=== PATIENT | male | born 1990 | race Caucasian/White ===

== ENCOUNTER 2019-03-16 06:17 | Day surgery (SDC) | payer BC ==
[~2019-03-16] VITALS: Ht 180.3 cm; Wt 75.3 kg
[2019-03-16] VITALS (10 sets, daily range): BP systolic 85–111; BP diastolic 37–62; PULSE 60–86; RESP 14–22; Ht 180.3 cm; Wt 75.3 kg
[2019-03-16] MEDS ORDERED: CEFAZOLIN 2 GM/50 ML (PMX) 50 ML IVPB SCH (07:00)
[2019-03-16] MEDS ORDERED: SOD CHLORIDE 0.9% 1,000 ML IV SCH (07:00)
[2019-03-16] MEDS ORDERED: ACETAMINOPHEN 500 MG TAB PO ONE (08:00)
[2019-03-16] MEDS ORDERED: PROPOFOL 40 ML ONE (08:08)
[2019-03-16] MEDS ORDERED: MIDAZOLAM 1 MG/ML 2 ML INJ ONE (08:08)
[2019-03-16] MEDS ORDERED: CEFAZOLIN 1 GM INJ ONE (08:08)
[2019-03-16] MEDS ORDERED: ONDANSETRON 4 MG INJ ONE (08:08)
[2019-03-16] MEDS ORDERED: ROCURONIUM 50 MG INJ ONE (08:08)
[2019-03-16] MEDS ORDERED: FAMOTIDINE 20 MG INJ ONE (08:08)
[2019-03-16] MEDS ORDERED: LIDOCAINE 2% (SDV) 5 ML INJ ONE (08:08)
[2019-03-16] MEDS ORDERED: FENTAnyl 50 MCG/ML VIAL ONE (08:08)
[2019-03-16] MEDS ORDERED: KETOROLAC 30 MG INJ ONE (08:15)
--- NOTE | 2019-03-16 09:17 | PREAC ---
Date/Time of Note Date/Time of Note DATE: 03/16/19 TIME: 09:16 Anesthesia Eval and Record Evaluation Time Pre-Procedure Interview DATE: 03/16/19 TIME: 09:16 Age 28 Sex male NPO: 8 hrs Preoperative diagnosis pilonidal cyst Planned procedure pilonidal cyst excision Past Medical History Past Medical History: Includes Pulm: Smoking Hx (smokes cigaretts 2pack/wk and smokes marijuana occasionally) Surgery & Anesthesia Issues No known issue Meds Anticoagulation: No Beta Nathalie within 24 hr: No Reason Beta Nathalie not given: Pt. not on B-Nathalie No Active Prescriptions or Reported Meds Current Medications Cefazolin Sodium/ Dextrose 50 ml @ 100 mls/hr HI-OP IVPB ; Start 03/16/19 at 07:00; Stop 03/16/19 at 12:00 Sodium Chloride 1,000 ml @ 75 mls/hr [id number] IV Last administered on 03/16/19at 07:37; Admin Dose 75 MLS/HR; Start 03/16/19 at 07:00; Stop 03/16/19 at 12:00 Meds reviewed: Yes Allergies Coded Allergies: No Known Allergy (Unverified , 03/16/19) Allergies Reviewed: Yes Labs/Studies Labs Reviewed: Reviewed by anesthesiologist Result Diagram: 03/16/19 0715 03/16/1915 Laboratory Tests 03/16/19 07:15 test: N/A Pre-procedure Exam Last vitals Vital Signs Date Temp Pulse Resp B/P (MAP) Pulse Ox O2 O2 Flow FiO2 Time Delivery Rate 03/16/19 97.7 60 16 107/62 99 Room Air 07:30 (77) Airway: Adequate mouth opening, Adequate thyromental dist Mallampati: Mallampati II Teeth: Normal Lung: Normal Heart: Normal ASA Physical Status ASA physical status: 2 Emergency: None Planned Anesthetic General/MAC: ETT Pre-operative Attestations Prior to commencing anesthesia and surgery, the patient was re-evaluated, there was verification of: *The patient's identity *The results of appropriate recent lab work and preoperative vital signs *The above evaluation not changing prior to induction *Anesthetic plan, risk benefits, alternative and complications discussed with patient/family; questions answered; patient/family understands, accepts and wishes to proceed. LAZARUS ESCUDERO Mar 16, 2019 09:17
[2019-03-16] MEDS ORDERED: BUPIVACAINE 0.5%/EPI (SDV) 30 ML INJ ONE (09:26)
[2019-03-16] MEDS ORDERED: LIDOCAINE 1%/EPI 30 ML INJ ONE (09:26)
[2019-03-16] MEDS ORDERED: hydrALAzine 20 MG INJ IV PRN (09:30)
[2019-03-16] MEDS ORDERED: HYDROmorphONE 1 MG/5 ML IV SYRINGE IV PRN ×3 (09:30)
[2019-03-16] MEDS ORDERED: EPHEDrine 25 MG/5 ML SYG IV PRN (09:30)
[2019-03-16] MEDS ORDERED: FENTAnyl 50 MCG/ML VIAL IV PRN ×2 (09:30)
[2019-03-16] MEDS ORDERED: OXYCODONE/ACETAMINOPHEN (5/325) TAB PO PRN ×2 (09:30)
[2019-03-16] MEDS ORDERED: ALBUTEROL 0.083% (NEB) 2.5 MG/3 ML AMP HHN PRN (09:30)
[2019-03-16] MEDS ORDERED: MEPERIDINE 25 MG INJ IV PRN (09:30)
[2019-03-16] MEDS ORDERED: morphine 2 MG INJ IV PRN ×3 (09:30→12:30)
[2019-03-16] MEDS ORDERED: ONDANSETRON 4 MG INJ IV PRN ×2 (09:30→12:30)
[2019-03-16] MEDS ORDERED: LABETALOL HCL 20MG INJ IV PRN (09:30)
[2019-03-16] MEDS ORDERED: DIPHENHYDRAMINE 50 MG INJ IV PRN (09:30)
[2019-03-16] MEDS ORDERED: PHENYLephrine (100 MCG/ML) 10ML SYG ONE (10:12)
--- NOTE | 2019-03-16 11:38 | PAC ---
Date/Time of Note Date/Time of Note DATE: 03/16/19 TIME: 11:37 Post-Anesthesia Notes Post-Anesthesia Note Last documented vital signs Vital Signs Date Temp Pulse Resp B/P Pulse Ox O2 O2 Flow FiO2 Time (MAP) Delivery Rate 03/16/19 97.7 98.4 60 70 16 16 107/62 99 100 Room 07:30 113 (77) 102 Air face 0 /43 mask 6L Activity: WNL Respiratory function: WNL Cardiovascular function: WNL Mental status: Baseline Pain reasonably controlled: Yes Hydration appropriate: Yes Nausea/Vomiting absent: Yes LAZARUS ESCUDERO Mar 16, 2019 11:38
[2019-03-16] MEDS ORDERED: LACTATED RINGER'S 1,000 ML IV SCH (12:03)
--- NOTE | 2019-03-16 12:03 | SIPON ---
Date/Time of Note Date/Time of Note DATE: 03/16/19 TIME: 11:54 Operative Report Preoperative Diagnosis Extensive pilonidal cyst and sinuses Postoperative Diagnosis Extensive pilonidal cyst and sinuses. Operation/Procedure Performed Wide excision of the pilonidal cyst and sinuses #1 Local fasciocutaneous flap advancement 36 cm from right to left of midline to make a cleft lift to the left side of the midline. Assessment Sesar-Zendejas drain #7 under the fasciocutaneous flap. Surgeon see signature line retail sales assistant None Anesthesia: general Estimated blood loss: minimal Transfusion Required none Specimen Consists of pilonidal cyst and sinus tract and extra skin in the vicinity. Grafts/Implants none Complications none MILLA EVERETT MD Mar 16, 2019 12:02
[2019-03-16] MEDS ORDERED: HYDROCODONE/APAP (5/325) TAB PO PRN (12:30)
--- NOTE | 2019-03-16 18:12 | OPR ---
Date/Time of Note Date/Time of Note DATE: 03/16/19 TIME: 17:46 Operative Report Procedure Date: Mar 16, 2019 Preoperative Diagnosis Extensive pilonidal disease of the sacrococcygeal skin area and pilonidal cyst and sinuses. Postoperative Diagnosis The same pending pathology report Operation/Procedure Performed 1 wide excision of pilonidal cyst and sinuses and inflamed and diseased skin of the vicinity 2 local fascial cutaneous flap advancement 36 cm, from right to left of original midline to make a Bureau cleft lift closure to the left lateral original midline. Layer closure, deep layer with Vicryl 2 oh and the skin closure with #2-0 Prolene interrupted vertical mattress. Placement of Sesar-Zendejas drain #7 under the flap. Surgeon Arnoldo Everett M.D. Aviation Consultant None Anesthesia Type: general, other (Local) Estimated Blood Loss: 0 - 10 ml's (5 cc) Transfusion none Specimen Pilonidal cyst and sinus tract and inflamed tissues around them Grafts/Implants none Tubes/Drains 1 DAVID drain #7 Complications none Pt Condition Post Procedure: stable Disposition: home Indications 28-year-old [place] male has been having problem with his lower back in the sense that has had on and off swelling and drainage of purulent material and or blood for over 1 year eventually the diagnosis of pilonidal cyst disease was made patient requested operation to get relief of this problem. Alternatives of treatment risks and benefits of operation and different technique of operation was discussed with the patient in detail. Patient requested surgery authorization was obtained and patient was booked for operation today Procedure Description Procedure Patient was brought from the holding area over the stretcher to the operating room. General anesthesia was induced by the anesthesiologist orotracheal intubation was performed and the patient was transferred to the operating table and was placed in prone position. Cardiopulmonary monitoring was performed by the anesthesiologist and all the pressure spots were padded prepped with Betadine and draped in a sterile fashion was performed. Timeout was called patient was identified site of operation and procedure and consents were discussed among the team. Through the operation a mixture of quarter percent Marcaine with epi lidocaine 1% with epinephrine was used for local anesthesia. Considering that most of the pathology was on the left side of the midline therefore decision was made to proceed with a John modified technique for removal of the old sinus and cyst and diseased tissues and then for transferring the closure line to the lateral side of the midline and on the left side in order to lift the original cleft to the left side to facilitate the healing out of the midline. To achieve this goal a local fascial cutaneous flap advancement was performed about 36 cm flap based on the right side of the skin covering the area of the gluteus muscle after the flap was developed on hemostasis achieved then wound was thoroughly irrigated with normal saline solution and Betadine. Presacral fascia was injected with local solution. Then through a separate stab wound a #7 Sesar-Zendejas drain was introduced into the wound and was left under the flap. Then the tapes that the beginning of the procedure had been applied to the skin of the gluteal area on both sides was relieved helping the gluteal area as to approximate 2-4 the midline and then closure started closing the deep fascia with #2-0 Vicryl several interrupted sutures were taken. The skin was closed with #2-0 Prolene vertical interrupted mattress sutures were applied. Before the dressing be applied on the closed wound the sponge and needle and instrument count were reported to be correct x2 by the circulating nurse. Xeroform dressing was applied over the wound on top of it Telfa dressing was applied and then on top of it dry sterile sponges were applied again it was taped to the skin of the posterior side of the gluteal area. Sesar-Zendejas drain tubing was anchored to the skin with 2-0 nylon the tubing was connected to the block. At this time patient was transferred to the stretcher while he still was intubated and eventually patient was extubated in a stable condition on the stretcher and was transferred to recovery room. Estimated blood loss 5 cc and a specimen was passed off the field to be sent to pathology department for evaluation. ARNOLDO EVERETT MD Mar 16, 2019 17:57
== END 2019-03-16 13:02 | disposition home or self-care (01) ==
LOC: SDS 06:17
DX: L05.91 Pilonidal cyst without abscess (principal); F17.200 Nicotine dependence, unspecified, uncomplicated
CPT/HCPCS: 11772; 80048; 85025; 85610; 85730; 88304; J0690; J1885; J2250; J2370; J2405; J3010; J7030; Z7512; Z7610